=== PATIENT | male | born 1985 | race Caucasian/White ===

== ENCOUNTER 2022-10-06 18:27 | Emergency (ER) | payer OTHER ==
[2022-10-06] MEDS: Iopamidol 612 MG/ML 100 ML Bottle IVPUSH ONE (19:11)
[2022-10-06] MEDS: Iopamidol 612 MG/ML 50 ML SDV IVPUSH ONE (19:11)
[2022-10-06] MEDS: Sodium Chloride 0.9% 10 ML Syringe FLUSH ONE (19:12)
[2022-10-06 19:22] LABS: BASOPHILS ABSOLUTE AUTO 0.02 K/mm3 (0.01-0.08); BASOPHILS PERCENT AUTO 0.2 % (0.1-1.2); EOSINOPHILS ABSOLUTE AUTO 0.15 K/mm3 (0.04-0.54); EOSINOPHILS PERCENT AUTO 1.8 (0.8-7.0); HEMATOCRIT 44.5 % (40.1-51.0); HEMOGLOBIN 14.4 gm/dl (13.7-17.5); IMMATURE GRAN ABSOLUTE AUTO 0.01 K/mm3 (0.00-0.10); IMMATURE GRAN PERCENT AUTO 0.1 % (<=1.0); LYMPHOCYTES ABSOLUTE AUTO 3.24 K/mm3 (1.32-3.57); LYMPHOCYTES PERCENT AUTO 39.6 % (21.8-53.1); MEAN CORPUSCULAR HEMOGLOBIN 28.3 pg (25.7-32.2); MEAN CORPUSCULAR HGB CONC 32.4 g/dl (32.2-35.5); MEAN CORPUSCULAR VOLUME 87.6 fl (79.0-92.2); MEAN PLATELET VOLUME 10.5 fl (9.4-12.3); MONOCYTES ABSOLUTE AUTO 0.65 K/mm3 (0.30-0.82); MONOCYTES PERCENT AUTO 7.9 % (5.3-12.2); NEUTROPHILS ABSOLUTE AUTO 4.11 K/mm3 (1.78-5.38); NEUTROPHILS PERCENT AUTO 50.4 % (34.0-67.9); PLATELET COUNT,PLT 301 K/mm3 (163-337); RED BLOOD CELL COUNT 5.08 M/mm3 (4.63-6.08); WHITE BLOOD CELL COUNT,WBC 8.18 K/mm3 (4.23-9.07)
[2022-10-06] MEDS: diphenhydrAMINE 50 MG/ML SDV IVPUSH ONE (19:24)
[2022-10-06] MEDS: Sodium Chloride 0.9% 10 ML Syringe FLUSH PRN (19:24)
[2022-10-06 19:45] LABS: ALBUMIN 3.6 g/dl (3.4-5.0); ANION GAP 7.9 (5-15); BILIRUBIN TOTAL 0.4 mg/dL (0.2-1.0); BUN/CREATININE RATIO 10.8 (14-18); CALCIUM 8.4 mg/dL (8.5-10.1); CREATININE 1.2 mg/dL (0.7-1.3); EST CRCL DRUG DOSING (CG) 94.31 mL/min; PROTEIN TOTAL,TP 7.1 g/dl (6.4-8.2)
[2022-10-06 19:46] LABS: POTASSIUM,K 3.9 mEq/L (3.5-5.1)
[2022-10-07 05:08] LABS: HEMATOCRIT 39.6 % (40.1-51.0); HEMOGLOBIN 12.9 gm/dl (13.7-17.5)
== END 2022-10-07 07:05 | disposition home or self-care (01) ==
LOC: JD.ED 18:27
DX: K92.1 Melena (principal); Z98.890 Other specified postprocedural states; Z88.2 Allergy status to sulfonamides
CPT/HCPCS: 36415; 74177; 80053; 85014; 85018; 85025; 96374; 99285; J1200; J3490; Q9967; 99284